=== PATIENT | female | born 1950 | race Caucasian/White ===

== ENCOUNTER 2019-04-19 05:12 | Observation (INO) | payer OTHER ==
[~2019-04-19] VITALS: Ht 165.1 cm; Wt 78.9 kg
[2019-04-19 06:00] LABS: Source, Urine Clean Catch
[2019-04-19 06:02] LABS: Bilirubin, Urine Neg (Neg); Blood, Urine Neg (Neg); Glucose Qualitative, Urine Neg (Neg); Ketones, Urine Neg (Neg); Leukocyte Esterase, Urine 2+ (Neg); Nitrite, Urine Neg (Neg); Protein, Urine Neg (Neg); Urobilinogen, Urine NORM (Normal)
[2019-04-19 06:07] LABS: Appearance, Urine Clear (Clear); Bacteria Mod /hpf; Color, Urine Yellow (P-Yellow); Mucus Light (0-Heavy); Red Blood Cells, Urine 0-2 /hpf (0-2); Squamous Epithelial Cells Few /hpf (Few)
[2019-04-19 06:17] LABS: BASOPHILS ABSOLUTE AUTO 0.07 K/mm3 (0.00-0.23); BASOPHILS PERCENT AUTO 1 % (0-2); EOSINOPHILS ABSOLUTE AUTO 0.75 K/mm3 (0.00-0.68); EOSINOPHILS PERCENT AUTO 11 % (0-6); Hemoglobin 13.4 g/dL (11.5-16.0); IMMATURE GRAN ABSOLUTE AUTO 0.02 K/mm3 (0.00-0.10); IMMATURE GRAN PERCENT AUTO 0 % (0-1); LYMPHOCYTES ABSOLUTE AUTO 1.36 K/mm3 (0.84-5.20); LYMPHOCYTES PERCENT AUTO 19 % (21-46); MONOCYTES ABSOLUTE AUTO 0.62 K/mm3 (0.16-1.47); MONOCYTES PERCENT AUTO 9 % (4-13); Mean Corpuscular HGB 28.8 pg (26.0-34.0); Mean Corpuscular HGB Conc 30.5 g/dL (31.5-36.5); Mean Corpuscular Volume 95 fL (80-100); Mean Platelet Volume 10.7 fL (9.1-12.4); NEUTROPHILS PERCENT AUTO 60 % (41-73); Platelet Count 341 K/mm3 (150-400); RDW Coefficient Variation 13.6 % (11.7-14.2); RDW Standard Deviation 47.6 fL (35.1-46.3); Red Blood Cell Count 4.65 M/mm3 (3.80-5.20); White Blood Cell Count 7.02 K/mm3 (4.00-11.30)
[2019-04-19 06:29] LABS: Alanine Aminotransfer (ALT/SGP 326 U/L (12-78); Albumin, Blood 3.4 g/dL (3.4-5.0); Albumin/Globulin Ratio 0.8 (0.8-1.8); Alk Phos 475 U/L (50-136); Anion Gap 5 mmol/L (6-16); Aspartate Aminotrans (AST/SGOT 206 U/L (12-37); Bilirubin, Total 0.3 mg/dL (0.1-1.0); Blood Urea Nitrogen 12 mg/dL (8-24); Bun/Creatinine Ratio 13.1 (12.0-20.0); CO2, Blood 24 mmol/L (21-32); Calcium, Blood 9.8 mg/dL (8.5-10.1); Chloride, Blood 115 mmol/L (98-108); Creatinine, Blood 0.92 mg/dL (0.40-1.00); Globulin, Blood 4.1 g/dL (2.2-4.0); Glomerular Filtration Rate >60 (60-); Glucose, Blood 132 mg/dL (70-99); Potassium, Blood 4.6 mmol/L (3.5-5.5); Sodium, Blood 144 mmol/L (136-145); Total Protein, Blood 7.5 g/dL (6.4-8.2)
[2019-04-19 06:31] LABS: Magnesium, Blood 2.1 mg/dL (1.6-2.4)
[2019-04-19 06:32] LABS: Troponin I <0.015 ng/mL (0.000-0.040)
--- NOTE | 2019-04-19 09:47 | NUR ---
PT ARRIVED AT 0940. PT IS ALERT AND ORIENTED. SHE REPORTS PAIN IS MANAGED AT THIS TIME. DENIES NAUSEA. VSS. WILL MONITOR UNTIL REPORT TO ONCOMING RN.
[2019-04-19] MEDS ORDERED: LOSA25 PO (10:49)
[2019-04-19] MEDS ORDERED: TIZA4 PO (10:50)
[2019-04-19] MEDS ORDERED: ACET500 PO (10:51)
[2019-04-19] MEDS ORDERED: VENTOLIN INH (10:52)
[2019-04-19] MEDS ORDERED: [UNRECOGNIZED DRUG - OTHER] INH (10:52)
[2019-04-19] MEDS ORDERED: ALLOPURINOL 100 MG PO (10:53)
[2019-04-19] MEDS ORDERED: ASPI81CH PO (10:55)
[2019-04-19] MEDS ORDERED: ATOR40TA PO (10:56)
[2019-04-19] MEDS ORDERED: Qvar Redihaler INH (10:57)
[2019-04-19] MEDS ORDERED: [UNRECOGNIZED DRUG - REMARK] (10:58)
[2019-04-19] MEDS ORDERED: HYDROCODONE PO (11:00)
[2019-04-19] MEDS ORDERED: ACETAMINOPHEN PO (11:00)
[2019-04-19] MEDS ORDERED: EUTHYROX137 MCG PO (11:02)
[2019-04-19] MEDS ORDERED: SPIRIVA RESPIMAT INH (11:03)
--- NOTE | 2019-04-19 11:49 | NUR ---
IN PACU FOR PRE OP HOLDING
--- NOTE | 2019-04-19 12:00 | NUR ---
PT TAKEN TO DAY SURGERY.
--- NOTE | 2019-04-19 16:27 | NUR ---
PT TO MRI AT THIS TIME.
[2019-04-19] MEDS ORDERED: Nitrostat0.3 MG SL (17:09)
--- NOTE | 2019-04-19 18:34 | NUR ---
SHIFT SUMMARY PT IS DOING WELL POST-OP. SHE HAS BEEN ADVANCED TO CLEARS AND IS TOLERATING WELL. PAIN HAS BEEN MANAGED WITH IV PAIN MEDICATION. PT HAS AMBULATED. SHE IS PASSING FLATUS. BP HAS BEEN HIGH AT TIMES, COZAAR GIVEN THIS AFTERNOON. VSS. WILL MONITOR UNTIL REPORT TO ONCOMING RN.
[2019-04-20 04:08] LABS: BASOPHILS ABSOLUTE AUTO 0.02 K/mm3 (0.00-0.23); BASOPHILS PERCENT AUTO 0 % (0-2); EOSINOPHILS ABSOLUTE AUTO 0.02 K/mm3 (0.00-0.68); EOSINOPHILS PERCENT AUTO 0 % (0-6); Hematocrit 35.8 % (33.0-51.0); IMMATURE GRAN ABSOLUTE AUTO 0.02 K/mm3 (0.00-0.10); IMMATURE GRAN PERCENT AUTO 0 % (0-1); LYMPHOCYTES ABSOLUTE AUTO 1.73 K/mm3 (0.84-5.20); LYMPHOCYTES PERCENT AUTO 18 % (21-46); MONOCYTES ABSOLUTE AUTO 1.08 K/mm3 (0.16-1.47); MONOCYTES PERCENT AUTO 11 % (4-13); Mean Corpuscular HGB 29.5 pg (26.0-34.0); Mean Corpuscular HGB Conc 30.7 g/dL (31.5-36.5); Mean Corpuscular Volume 96 fL (80-100); Mean Platelet Volume 10.4 fL (9.1-12.4); NEUTROPHILS ABSOLUTE AUTO 6.81 K/mm3 (1.96-9.15); NEUTROPHILS PERCENT AUTO 70 % (41-73); Platelet Count 255 K/mm3 (150-400); RDW Coefficient Variation 13.6 % (11.7-14.2); RDW Standard Deviation 48.5 fL (35.1-46.3); Red Blood Cell Count 3.73 M/mm3 (3.80-5.20); White Blood Cell Count 9.68 K/mm3 (4.00-11.30)
[2019-04-20 04:35] LABS: Alanine Aminotransfer (ALT/SGP 240 U/L (12-78); Albumin, Blood 2.9 g/dL (3.4-5.0); Albumin/Globulin Ratio 0.9 (0.8-1.8); Alk Phos 350 U/L (50-136); Anion Gap 6 mmol/L (6-16); Aspartate Aminotrans (AST/SGOT 136 U/L (12-37); Bilirubin, Total 0.3 mg/dL (0.1-1.0); Blood Urea Nitrogen 11 mg/dL (8-24); Bun/Creatinine Ratio 11.3 (12.0-20.0); CO2, Blood 25 mmol/L (21-32); Calcium, Blood 9.5 mg/dL (8.5-10.1); Chloride, Blood 111 mmol/L (98-108); Creatinine, Blood 0.97 mg/dL (0.40-1.00); Globulin, Blood 3.4 g/dL (2.2-4.0); Glomerular Filtration Rate >60 (60-); Glucose, Blood 113 mg/dL (70-99); Potassium, Blood 4.8 mmol/L (3.5-5.5); Sodium, Blood 142 mmol/L (136-145); Total Protein, Blood 6.3 g/dL (6.4-8.2)
--- NOTE | 2019-04-20 06:38 | NUR ---
SUMMARY TOLERATING PO. UP IN HALLS.REPORTS ADEQUATE PAIN CONTROL. VOIDING WITHOUT DIFF.PLANS FOR POSSIBLE DISCHARGE HOME TODAY.
--- NOTE | 2019-04-20 08:36 | NUR ---
DR LOMBARDI HERE TO SEE PT RECENTLY, REPORTS PT MAY GO HOME.
--- NOTE | 2019-04-20 09:08 | NUR ---
DR HARDEN HERE TO SEE PT.
--- NOTE | 2019-04-20 09:12 | NUR ---
DR HARDEN REPORTS MAY D/C TELE AND IV NOW.
--- NOTE | 2019-04-20 10:32 | NUR ---
RECENT DISCHARGE: PT REPORTS UNDERSTANDING OF DISCHARGE INSTRUCTIONS. REPORTS HAVING MEDICATIONS AT HOME INCLUDING PAIN MEDICATION, PAIN SCRIPT RIPPED UP AND PLACED IN DR EDWIN FROST. PT REPORTS UP IND. PT EATING AND DRINKING, VOIDING AND PASSING GAS. PT REQ TO AMBULATE OUT OF HOSPITAL. IV OUT WNL. NO OTHER IV IN PLACE.
== END 2019-04-20 10:25 | disposition home or self-care (01) ==
LOC: ER 05:12 → SURS 05:13 → ER 08:19 → SURS 08:19
PROVIDERS: Emergency Medicine; Surgery; ADMIT Family Medicine
PROC: 0FT44ZZ Resection of Gallbladder, Percutaneous Endoscopic Approach (ICD-10-PCS; principal; 2019-04-19 13:30)
DX: K80.63 Calculus of gallbladder and bile duct with acute cholecystitis with obstruction (principal); J44.9 Chronic obstructive pulmonary disease, unspecified; I25.10 Atherosclerotic heart disease of native coronary artery without angina pectoris; I10 Essential (primary) hypertension; E03.9 Hypothyroidism, unspecified; E78.5 Hyperlipidemia, unspecified; I25.2 Old myocardial infarction; Z87.891 Personal history of nicotine dependence; Z79.82 Long term (current) use of aspirin; Z79.899 Other long term (current) drug therapy
CPT/HCPCS: 36415; 74181; 74300; 76705; 80053; 81001; 83690; 83735; 84484; 85025; 87086; 88304; 93005; 93010; 94640; 94760; 96374; 96375; 96376; 99285-25; A9270-GY; C1729; C1894; G0378; J0690; J1100; J1170; J1885; J2060; J2250; J2405; J2704; J3010; J7030; J7120; Q0163